=== PATIENT | female | born 1980 | race Two or more races ===

== ENCOUNTER 2021-03-03 17:29 | Emergency (ER) | payer SELFPAY ==
[~2021-03-03] VITALS: Ht 162.6 cm; Wt 63.5 kg
--- NOTE | 2021-03-03 17:45 | NUR ---
DYLAN 80 from home c/o abdominal pain, N/V/D, generalized bodyaches x 3days patient states "I think I have covid because my roommate has covid" COMPLAINS OF PAIN 11/16. ALERT AND ORIENTEDX3 NO SOB
[2021-03-03] MEDS ORDERED: ONDANSETRON HCL/PF 4 MG/2 ML VIAL ONE (18:55)
--- NOTE | 2021-03-03 19:00 | NUR ---
BLOOD AND CULTURES SENT TO LAB
[2021-03-03 19:03] LABS: BILIRUBIN,URINE Negative (NEGATIVE); COLOR,URINE YELLOW (YELLOW); LEUKOCYTE ESTERASE ,URINE Negative (NEGATIVE); NITRITE, URINE Negative (NEGATIVE); PH,URINE 6.5 (5.0-8.0); PROTEIN,URINE Negative (NEGATIVE); UGLUCOSE Negative (NEGATIVE); UROBILINOGEN,URINE 0.2 EU/dL (0.2)
[2021-03-03 19:09] LABS: BASOPHILS % (AUTO) 0.3 % (0.0-2.0); HEMATOCRIT 39 % (33-45); HEMOGLOBIN 12.9 g/dL (11.5-14.8); LYMPHOCYTES # (AUTO) 0.8 K/uL (0.8-4.8); LYMPHOCYTES % (AUTO) 17.7 % (20.0-44.0); MEAN CORPUSCULAR HGB CONC 33 g/dl (31.0-36.0); MEAN CORPUSCULAR VOLUME 80 fL (82-100); MONOCYTES # (AUTO) 0.1 K/uL (0.1-1.30); MONOCYTES % (AUTO) 2.6 % (2.0-12.0); NEUTROPHILS # (AUTO) 3.5 K/uL (1.8-8.9); NEUTROPHILS % (AUTO) 79.4 % (43.0-81.0); PLATELET COUNT (AUTO) 224 K/uL (150-450); RED BLOOD CELL COUNT(AUTO) 4.89 MIL/uL (4.0-5.2); WHITE BLOOD COUNT (AUTO) 4.4 K/uL (4.3-11.0)
[2021-03-03] MEDS: IV NS 0.9% 1,000 ML BAG IV ONE (19:12)
[2021-03-03] MEDS: ONDANSETRON HCL/PF 4 MG/2 ML VIAL IVP ONE (19:12)
--- NOTE | 2021-03-03 19:17 | NUR ---
EXERCISE SCIENTIST AT BEDSIDE.
[2021-03-03 19:20] LABS: CALCIUM, SERUM 8.6 mg/dL (8.5-10.1); CREATININE 0.7 mg/dL (0.6-1.3); POTASSIUM 3.6 mmol/L (3.5-5.1)
[2021-03-03 19:23] LABS: WBC,URINE 0-2 /HPF (0-3)
[2021-03-03 19:24] LABS: BACTERIA,URINE Moderate /HPF (None Seen); RBC,URINE 21-50 /HPF (0-2); SQUAMOUS EPITHELIAL CELL,UR Many /HPF (None Seen)
[2021-03-03 19:32] LABS: ALBUMIN 3.5 g/dL (3.4-5.0); BILIRUBIN,DIRECT 0.1 mg/dL (0.0-0.2); BILIRUBIN,TOTAL 0.1 mg/dL (0.2-1.0); TOTAL PROTEIN, SERUM 8.1 g/dL (6.4-8.2)
[2021-03-03] MEDS ORDERED: KETOROLAC TROMETHAMINE 15 MG/ML VIAL ONE (20:58)
[2021-03-03] MEDS: HYDROMORPHONE 1 MG/1 ML DISP.SYRIN IV ONE (21:08)
[2021-03-03] MEDS: KETOROLAC TROMETHAMINE INJ 30 MG/ML VIAL IV ONE (21:09)
[2021-03-03] MEDS ORDERED: IBUP-1955 PO (22:09)
[2021-03-03 22:20] VITALS: BP 111/65
--- NOTE | 2021-03-03 22:20 | NUR ---
Patient discharged to home in stable condition. Written and verbal after care instructions given. Patient verbalizes understanding of instruction and RX. Pt ambulated out of ED. VSS.
--- NOTE | 2021-03-03 22:20 | NUR ---
IV removed. Catheter intact and site benign. Pressure and 4x4 applied to site. No bleeding noted.
== END 2021-03-03 22:37 | disposition home or self-care (01) ==
LOC: ER 17:42
DX: R10.84 Generalized abdominal pain (principal); R10.11 Right upper quadrant pain; N80.9 Endometriosis, unspecified; D21.9 Benign neoplasm of connective and other soft tissue, unspecified; E86.0 Dehydration
CPT/HCPCS: 36415; 76705; 76856; 80048; 80076; 81001; 83690; 84702; 84703; 85025; 87086; 96361; 96374; 96375; 99285; J1170; J1885; J2405; J7030